=== PATIENT | male | born 1995 | race Caucasian/White ===

== ENCOUNTER 2023-08-27 11:29 | Outpatient (REF) | payer OTHER, SELFPAY ==
[2023-08-27 13:29] LABS: MANUAL DIFF FLAG NO
[2023-08-27 13:36] LABS: Basophils Percent Auto 0.3 % (0-2); Eosinophils Absolute Auto 0.2 X10*3/uL (0.0-0.4); Eosinophils Percent Auto 2.4 % (0-4); Hematocrit 43.9 % (42.0-52.0); Hemoglobin 15.3 g/dl (14.0-18.0); Imm Gran Abs Auto 0.02 X10*3/uL (0.00-0.03); Imm Gran Pct Auto 0.3 % (0.0-0.4); Lymphocytes Percent Auto 25.9 % (20-40); Mean Corpuscular HGB Conc 34.9 g/dl (31.0-36.0); Mean Corpuscular Hemoglobin 29.7 pg (27.0-33.0); Mean Corpuscular Volume 85.2 fL (80.0-98.0); Monocytes Absolute Auto 0.6 X10*3/uL (0.1-1.2); Monocytes Percent Auto 7.6 % (2-11); Neutrophils Absolute Auto 4.9 x10*3/uL (2.0-8.3); Neutrophils Percent Auto 63.5 % (45-73); Platelet Count 254 X10*3/uL (160-400); Red Blood Count 5.15 X10*6/uL (4.60-5.80); Red Cell Distribution Width 12.1 % (11.0-16.0); White Blood Count 7.6 X10*3/uL (4.8-10.8)
[2023-08-27 13:52] LABS: Alanine Aminotransferase 18 U/L (0-40); Albumin Level 4.5 g/dL (3.5-5.0); Alkaline Phosphatase 91 U/L (39-117); Anion Gap 11 (12-20); Aspartate Amino Transferase 18 U/L (5-37); Bilirubin Total 0.6 mg/dL (0.0-1.0); Blood Urea Nitrogen 10 mg/dL (9-16); Calcium 9.5 mg/dL (8.4-10.2); Carbon Dioxide 29 mmol/L (22-29); Chloride 106 mmol/L (96-108); Cholesterol 201 mg/dL (<200); Estimated Glomerular Filt Rate > 60; Glucose Random 113 mg/dL (60-115); HDL Cholesterol 37 mg/dL (>40); LDL Cholesterol Calculated 142 mg/dL (<100); Potassium 4.1 mmol/L (3.3-5.1); Sodium 142 mmol/L (135-145); Total Protein 7.7 g/dL (6.5-8.0); Triglycerides 113 mg/dL (<150)
[2023-08-27 15:26] LABS: Amphetamine Screen Urine Not Detected (Not Detect); Barbiturates, Urine Not Detected (Not Detect); Benzodiazepines Screen Urine Not Detected (Not Detect); Cannabinoid Screen Urine Not Detected (Not Detect); Cocaine Screen Urine Not Detected (Not Detect); Fentanyl, urine Not Detected (Not Detect); Opiate Screen Urine Not Detected (Not Detect); Phencyclidine Screen Urine Not Detected (Not Detect)
== END 2023-08-27 11:30 | disposition home or self-care (01) ==
LOC: HO.10HDL 11:29
PROVIDERS: Visit Provider Internal Medicine
DX: Z00.01 Encounter for general adult medical examination with abnormal findings (principal); E66.8 Other obesity; G47.33 Obstructive sleep apnea (adult) (pediatric); I10 Essential (primary) hypertension; F90.0 Attention-deficit hyperactivity disorder, predominantly inattentive type
CPT/HCPCS: 80053; 80061; 80307; 85025

== ENCOUNTER 2023-12-28 11:00 | Outpatient (AMB) | payer OTHER, SELFPAY ==
[2023-12-28 11:03] VITALS: BP 112/80; PULSE 64; O2SAT 97
--- NOTE | 2023-12-28 11:03 | HO.NEPHOV_ITS ---
Vital Signs 12/28/23 11:03 Weight 213 lb BP 112/80 Blood Pressure Location Lt brachial Position Sitting Pulse 64 Pulse Source Pulse Oximeter Pulse Oximetry (%) 97 Oxygen Delivery Method Room Air Intake Visit Reasons: Hypertension/ Confirmed Internet Marketer Required: Yes Internet Marketer Name: [email or web address] [id number] Accompanied by: Self / Same As Patient Allergies No Known Allergies [No Known Allergies*] Allergy (Verified 12/28/23 11:05) HPI Comments Details: Clarence is a pleasant young man who was recently diagnosed with elevated blood pressure. He was prescribed losartan 25 mg. However he has not taken this medication yet. He has been exercising and has lost 3 lb. He has been referred for further evaluation of elevated blood pressure. Over the last 4 years Marquita's gained about 40 lb. He believes this is the reason why his blood pressure elevated any he is exercising regularly to lower his weight. He has difficulty sleeping and apparently he has been snoring as well. He has been referred for sleep evaluation He has no specific complaints today. No headache nausea vomiting. No abdominal pain constipation. No polyuria polydipsia. No palpitations. No sweating. No fever no rash. All systems were reviewed Internet Marketer service was used . [facility] Medical History (Updated 12/28/23 @ 11:40 by Clint Holloway MD) Essential (primary) hypertension Depression Family History Father Hypertension Stroke Social History (Updated 12/28/23 @ 11:06 by Lynn Rowan) Alcohol intake: former Physical Exam Vital Signs: Last Vital Signs Pulse 64 12/28/23 11:03 BP 112/80 12/28/23 11:03 Pulse Ox 97 12/28/23 11:03 Oxygen Delivery Method Room Air 12/28/23 11:03 Const General: comfortable Nutritional Appearance: well nourished Orientation/consciousness: patient oriented x3 HEENT Head: No normal to inspection Mouth: moist mucous membranes Neck Neck: Yes supple and Yes no JVD Resp Auscultation: clear to auscultation bilaterally, no rales and rub present Cardio Jugular venous distension: no JVD Palpation: no palpable S3 and no palpable S4 Heart sounds: no rubs GI Palpation (GI): Soft to palpation and nontender Percussion: No Fluid wave present General: Yes no CVA tenderness Back/Spine/Pelvis Back: no CVA tenderness Skin General skin exam: no rashes or lesions noted Neuro General: patient oriented x3 Extrem General: Yes no pedal edema and No clubbing Results Reviewed Nephrology Results: Hgb 15.3 g/dl (14.0-18.0) 08/27/23 WBC 7.6 X10*3/uL (4.8-10.8) 08/27/23 Plt Count 254 X10*3/uL (160-400) 08/27/23 Sodium 142 mmol/L (135-145) 08/27/23 Potassium 4.1 mmol/L (3.3-5.1) 08/27/23 Chloride 106 mmol/L (96-108) 08/27/23 Carbon Dioxide 29 mmol/L (22-29) 08/27/23 BUN 10 mg/dL (9-16) 08/27/23 Creatinine 1.08 mg/dL (0.5-1.4) 08/27/23 Calcium 9.5 mg/dL (8.4-10.2) 08/27/23 Assessment & Plan Assessment & Plan (1) Elevated blood pressure reading: Code(s): R03.0 - Elevated blood-pressure reading, without diagnosis of hypertension Category: Medical Plan . Marquita is a history of elevated blood pressure. In the office today blood pressure was excellent without any antihypertensive medications. He could have a component of white coat hypertension which could explain the elevated readings recently. Nevertheless he is overweight and with a history of sleeping disturbance I suspect he has underlying obstructive sleep apnea. My recommendation Encouraged him to stand low-sodium diet. Encouraged him to continue to lose weight. We had a lengthy discussion about increasing physical activity as well as lowering the calorie intake. He has downloaded my fitness pal ray in his I phone and he is going to try to monitor his calorie intake. I will arrange for a 24 hour ambulatory blood pressure monitoring. Await sleep evaluation. Agree with holding off on antihypertensive medications given the recent blood pressure reading and the fact that he is actively losing weight. We can re-evaluate the need for antihypertensive medications based on a 24 hour ABPM I have answered all his questions and we will follow along with you. Thank you Orders: Orders AMB 24 Hour Blood Pressure Monitor PLACEMENT Today I10 - Essential (primary) hypertension
== END 2023-12-28 11:34 | disposition home or self-care (01) ==
LOC: HO.HKA 11:00
PROVIDERS: PCP Internal Medicine; Referring Provider Internal Medicine; Visit Provider Internal Medicine Hypertension Specialist
DX: R03.0 Elevated blood-pressure reading, without diagnosis of hypertension (principal)
CPT/HCPCS: 99204

== ENCOUNTER → 2023-12-28 11:00 | Outpatient (BNVA) | payer OTHER, SELFPAY | PROVIDERS: PCP Internal Medicine; Referring Provider Internal Medicine; Visit Provider Internal Medicine Hypertension Specialist | DX: R03.0 Elevated blood-pressure reading, without diagnosis of hypertension (principal) | CPT/HCPCS: 99202 ==

== ENCOUNTER → 2024-01-06 09:14 | Outpatient (BNVA) | payer OTHER, SELFPAY | PROVIDERS: PCP Internal Medicine; Visit Provider Internal Medicine Hypertension Specialist ==

== ENCOUNTER 2024-01-07 09:02 | Outpatient (AMB) | payer OTHER, SELFPAY ==
--- NOTE | 2024-01-07 09:12 | HO.NEPHOV ---
Vital Signs 01/07/24 09:13 Height 5 ft 2 in BP 112/86 Blood Pressure Location Lt brachial Position Sitting Pulse 65 Pulse Source Pulse Oximeter Pulse Oximetry (%) 97 Oxygen Delivery Method Room Air Intake Visit Reasons: ABPM Lard Tub Washer Required: Yes Lard Tub Washer Name: Brayden [id number] Accompanied by: Self / Same As Patient Allergies No Known Allergies [No Known Allergies*] Allergy (Verified 01/07/24 09:13) HPI Comments Details: Clarence is a pleasant young man who was recently diagnosed with elevated blood pressure. He was prescribed losartan 25 mg. However he has not taken this medication yet. He has been exercising and has lost 3 lb. He has been referred for further evaluation of elevated blood pressure. Over the last 4 years Marquita's gained about 40 lb. He believes this is the reason why his blood pressure elevated any he is exercising regularly to lower his weight. He has difficulty sleeping and apparently he has been snoring as well. He has been referred for sleep evaluation He has no specific complaints today. No headache nausea vomiting. No abdominal pain constipation. No polyuria polydipsia. No palpitations. No sweating. No fever no rash. All systems were reviewed Lard Tub Washer service was used 01/07/24 Clarence underwent ABPM. Daytime readings are acceptable overnight remains elevated He admits to snoring at night. . [facility] Medical History (Updated 12/28/23 @ 11:40 by Clint Holloway MD) Essential (primary) hypertension Depression Family History Father Hypertension Stroke Social History Alcohol intake: former Physical Exam Vital Signs: Last Vital Signs Pulse 65 01/07/24 09:13 BP 112/86 01/07/24 09:13 Pulse Ox 97 01/07/24 09:13 Oxygen Delivery Method Room Air 01/07/24 09:13 Const General: comfortable Nutritional Appearance: well nourished Orientation/consciousness: patient oriented x3 HEENT Head: No normal to inspection Mouth: moist mucous membranes Neck Neck: Yes supple and Yes no JVD Resp Auscultation: clear to auscultation bilaterally, no rales and rub present Cardio Jugular venous distension: no JVD Palpation: no palpable S3 and no palpable S4 Heart sounds: no rubs GI Palpation (GI): Soft to palpation and nontender Percussion: No Fluid wave present General: Yes no CVA tenderness Back/Spine/Pelvis Back: no CVA tenderness Skin General skin exam: no rashes or lesions noted Neuro General: patient oriented x3 Extrem General: Yes no pedal edema and No clubbing Results Reviewed Nephrology Results: Hgb 15.3 g/dl (14.0-18.0) 08/27/23 WBC 7.6 X10*3/uL (4.8-10.8) 08/27/23 Plt Count 254 X10*3/uL (160-400) 08/27/23 Sodium 142 mmol/L (135-145) 08/27/23 Potassium 4.1 mmol/L (3.3-5.1) 08/27/23 Chloride 106 mmol/L (96-108) 08/27/23 Carbon Dioxide 29 mmol/L (22-29) 08/27/23 BUN 10 mg/dL (9-16) 08/27/23 Creatinine 1.08 mg/dL (0.5-1.4) 08/27/23 Calcium 9.5 mg/dL (8.4-10.2) 08/27/23 Assessment & Plan Assessment & Plan (1) Elevated blood pressure reading: Code(s): R03.0 - Elevated blood-pressure reading, without diagnosis of hypertension Category: Medical Plan . Clarence is a history of elevated blood pressure. In the office today blood pressure was excellent without any antihypertensive medications. 24 hour ABPM revealed well-controlled blood pressure during daytime; however the night and readings were elevated. Given the history of snoring and elevated nighttime blood pressure readings he needs sleep evaluation to low sleep apnea. In the meantime I have taken liberty of starting him on Losartan 25 mg to be taken in the evening in an attempt to lower the nocturnal systolic load. Encouraged him to stand low-sodium diet. Encouraged him to continue to lose weight. Orders: Referrals Sleep Medicine Referral R03.0 - Elevated blood-pressure reading, without diagnosis of hypertension Medications: New losartan 25 mg PO .every evening 90 tabs 0RF Coding Level of Care Code Est Pt Level 4 (05087) Diagnoses Elevated blood pressure reading R03.0
[2024-01-07 09:13] VITALS: BP 112/86; PULSE 65; O2SAT 97
== END 2024-01-07 09:43 | disposition home or self-care (01) ==
PROVIDERS: PCP Internal Medicine; Visit Provider Internal Medicine Hypertension Specialist
DX: R03.0 Elevated blood-pressure reading, without diagnosis of hypertension (principal)
CPT/HCPCS: 93790; 99214

== ENCOUNTER → 2024-01-07 09:02 | Outpatient (BNVA) | payer OTHER, SELFPAY | PROVIDERS: PCP Internal Medicine; Visit Provider Internal Medicine Hypertension Specialist | DX: R03.0 Elevated blood-pressure reading, without diagnosis of hypertension (principal) | CPT/HCPCS: 99212 ==

== ENCOUNTER 2024-03-01 12:23 | Outpatient (AMB) | payer OTHER, SELFPAY ==
[2024-03-01 12:21] VITALS: BP 120/82; PULSE 76; O2SAT 97; BMI 39.5
--- NOTE | 2024-03-01 12:21 | HO.NEPHOV_ITS ---
Vital Signs 03/01/24 12:21 Height 5 ft 2 in Weight 216 lb BMI 39.5 BP 120/82 Blood Pressure Location Lt brachial Position Sitting Pulse 76 Pulse Source Pulse Oximeter Pulse Oximetry (%) 97 Oxygen Delivery Method Room Air Intake Visit Reasons: Hypertension/ Conf Gate Cutter Required: Yes Gate Cutter Name: Ipad Gate Cutter Accompanied by: Self / Same As Patient Allergies No Known Allergies [No Known Allergies*] Allergy (Verified 03/01/24 12:23) HPI Comments Details: Clarence is a pleasant young man who was recently diagnosed with elevated blood pressure. He was prescribed losartan 25 mg. However he has not taken this medication yet. He has been exercising and has lost 3 lb. He has been referred for further evaluation of elevated blood pressure. Over the last 4 years Marquita's gained about 40 lb. He believes this is the reason why his blood pressure elevated any he is exercising regularly to lower his weight. He has difficulty sleeping and apparently he has been snoring as well. He has been referred for sleep evaluation He has no specific complaints today. No headache nausea vomiting. No abdominal pain constipation. No polyuria polydipsia. No palpitations. No sweating. No fever no rash. All systems were reviewed Gate Cutter service was used 01/07/24 Clarence underwent ABPM. Daytime readings are acceptable overnight remains elevated He admits to snoring at night. 03/01/24 HE was prescribed Losartan 25 mg Q PM But he did start the medication as prescribed He decided to try weight loss instead However, he has gained 3 lbs since last visit . [facility] Medical History (Updated 12/28/23 @ 11:40 by Clint Holloway MD) Essential (primary) hypertension Depression Family History Father Hypertension Stroke Social History Alcohol intake: former Physical Exam Vital Signs: Last Vital Signs Pulse 76 03/01/24 12:21 Pulse Ox 97 03/01/24 12:21 Oxygen Delivery Method Room Air 03/01/24 12:21 BMI result Body Mass Index 39.5 Const General: comfortable; No acute distress Orientation/consciousness: patient oriented x3 Eyes General: appearance normal, both eyes and all related structures Visual Poole: normal visual poole by confrontation Neck Neck: Yes supple and Yes no JVD Resp Effort & Inspection: normal respiratory effort and respiratory effort not decreased Auscultation: rhonchi Cardio Palpation: no palpable S3 and no palpable S4 Heart sounds: no rubs GI Inspection: Yes normal to inspection Palpation (GI): Soft to palpation Percussion: Yes normal to percussion Auscultation: normal bowel sounds General: Yes no CVA tenderness Back/Spine/Pelvis Back: no CVA tenderness Skin General skin exam: no petechiae and no purpura Neuro General: patient oriented x3 and no focal motor deficits Extrem General: No clubbing and No edema Results Reviewed Nephrology Results: Hgb 15.3 g/dl (14.0-18.0) 08/27/23 WBC 7.6 X10*3/uL (4.8-10.8) 08/27/23 Plt Count 254 X10*3/uL (160-400) 08/27/23 Sodium 142 mmol/L (135-145) 08/27/23 Potassium 4.1 mmol/L (3.3-5.1) 08/27/23 Chloride 106 mmol/L (96-108) 08/27/23 Carbon Dioxide 29 mmol/L (22-29) 08/27/23 BUN 10 mg/dL (9-16) 08/27/23 Creatinine 1.08 mg/dL (0.5-1.4) 08/27/23 Calcium 9.5 mg/dL (8.4-10.2) 08/27/23 Assessment & Plan Assessment & Plan (1) Elevated blood pressure reading: Code(s): R03.0 - Elevated blood-pressure reading, without diagnosis of hypertension Category: Medical Plan . Clarence is a history of elevated blood pressure. 24 hour ABPM revealed well-controlled blood pressure during daytime; however the night and readings were elevated. Given the history of snoring and elevated nighttime blood pressure readings he needs sleep evaluation to low sleep apnea. Would recommend Losartan 25 mg in the evening in an attempt to lower the nocturnal systolic load. However , he does not want to take it now and wants to try to lose weight before he goes on medication Recommend Sleep evaluation to r/o Obstructive sleep apnea Encouraged him to stay on low-sodium diet. Encouraged him to lose weight. Coding Level of Care Code Est Pt Level 4 (61333) Diagnoses Elevated blood pressure reading R03.0
== END 2024-03-01 12:33 | disposition home or self-care (01) ==
PROVIDERS: PCP Internal Medicine; Visit Provider Internal Medicine Hypertension Specialist
DX: R03.0 Elevated blood-pressure reading, without diagnosis of hypertension (principal)
CPT/HCPCS: 99214

== ENCOUNTER → 2024-03-01 12:23 | Outpatient (BNVA) | payer OTHER, SELFPAY | PROVIDERS: PCP Internal Medicine; Visit Provider Internal Medicine Hypertension Specialist | DX: R03.0 Elevated blood-pressure reading, without diagnosis of hypertension (principal) | CPT/HCPCS: 99212 ==